=== PATIENT | female | born 1980 | race African-American/Black ===

== ENCOUNTER 2018-11-24 10:48 | Emergency (ER) | payer OTHER ==
[~2018-11-24] VITALS: Ht 157.5 cm; Wt 81.6 kg
--- NOTE | 2018-11-24 11:03 | NUR ---
DARCY CALLED AND GAVE 45 MIN ETA FOR ULTRASOUND
--- NOTE | 2018-11-24 11:52 | Diagnostic Imaging Report ---
Radiographs of the left foot - 3 views HISTORY: Pain COMPARISON: None available. FINDINGS: Bones: No acute displaced fracture. Osseous alignment is within normal limits. Joints: Scattered degenerative change. No osseous erosion. Soft tissues: Soft tissue swelling. No radiopaque foreign body. IMPRESSION: Soft tissue swelling. No radiopaque foreign body. Signed by: Dr. Stephen Vann M.D. on 11/24/2018 11:49 AM
--- NOTE | 2018-11-24 12:54 | Diagnostic Imaging Report ---
EXAM: Left Lower Extremity Duplex Ultrasound INDICATION: Left lower extremity pain COMPARISON: None TECHNIQUE: Decker scale, color Doppler and spectral waveform analysis of the left lower extremity deep venous system was performed. FINDINGS: Common Femoral: Fully compressible with normal spontaneous waveforms. Proximal Greater Saphenous: Fully compressible. Femoral: Fully compressible with normal spontaneous waveforms. Normal response to augmentation. Proximal Deep Femoral: Normal spontaneous waveforms. Popliteal: Fully compressible with normal spontaneous waveforms. IMPRESSION: No evidence of deep venous thrombosis above the left calf. Signed by: Dr. Nancy Whitt M.D. on 11/24/2018 12:51 PM
--- NOTE | 2018-11-24 13:18 | NUR ---
KIRILL WRAP TO FOOT WITH EXTRA WRAP GIVEN. +DP BEFORE AND AFTER.
== END 2018-11-24 13:20 | disposition home or self-care (01) ==
LOC: FSED 10:48
DX: M10.072 Idiopathic gout, left ankle and foot (principal); M13.172 Monoarthritis, not elsewhere classified, left ankle and foot
CPT/HCPCS: 93971; 99284